=== PATIENT | female | born 1955 | race Caucasian/White ===

== ENCOUNTER 2018-01-06 07:55 | Day surgery (SDC) | payer BC ==
[~2018-01-06 07:55] MED LIST: Lactated Ringers 1,000 ML IV SCH; Sodium Chloride 0.9% 10 ML Syringe FLUSH PRN
[2018-01-06] MEDS ORDERED: fentaNYL 100 MCG/2 ML SDV ONE ×2 (08:54→09:00)
[2018-01-06] MEDS ORDERED: Propofol 200 MG/20 ML SDV ONE ×2 (08:54→09:00)
[2018-01-06] MEDS ORDERED: Midazolam 1 MG/ML 2 ML SDV ONE ×2 (08:54→09:00)
--- NOTE | 2018-01-06 08:54 | PCM.PN ---
- General Info Date of Service: 01/06/18 - Review of Systems Systems Review Comment:: 62-year-old female referred by Fidelia Cardenas for colonoscopy.her last colonoscopy was in 2010. She has recently been experiencing symptoms of diarrhea and right red rectal bleeding. A recent CT scan documented diverticulosis of the colon. The patient's recent history and physical is reviewed and there is no significant recent change in her health status. She is medically stable to proceed today. I have discussed the proposed colonoscopy with the patient. She understands indications and risks and agrees to proceed accepting these risks. - Patient Data Vitals - Most Recent: Last Vital Signs Temp 97 F 01/06/18 08:20 Pulse 84 01/06/18 08:20 Resp 18 01/06/18 08:20 BP 121/56 L 01/06/18 08:20 Pulse Ox 94 L 01/06/18 08:20 Weight - Most Recent: 99.79 kg Med Orders - Current: Current Medications Lactated Ringer's (Ringers, Lactated) 1,000 mls @ 125 mls/hr IV ASDIRECTED VAMIS Last Admin: 01/06/18 08:29 Dose: 125 mls/hr Sodium Chloride (Saline Flush) 10 ml FLUSH ASDIRECTED PRN PRN Reason: Keep Vein Open - Problem List Review Problem List Initiated/Reviewed/Updated: Yes - My Orders Last 24 Hours: My Active Orders 01/06/18 08:00 Blood Glucose Check, Bedside [RC] ONETIME - Assessment Assessment:: Diarrhea Rectal bleeding - Plan Plan:: Colonoscopy
--- NOTE | 2018-01-06 09:45 | PCM.OPNOTE ---
- General Post-Op/Procedure Note Date of Surgery/Procedure: 01/06/18 Operative Procedure(s): Colonoscopy with biopsy Findings: Generalized mild colitis throughout the colon. The mucosa was slightly hyperemic and folds mildly thickened. Patient also had moderate to large sized internal hemorrhoids Pre Op Diagnosis: Rectal bleeding and diarrhea Post-Op Diagnosis: Colitis. Hemorrhoids Anesthesia Technique: MAC Primary Surgeon: Miguel Solomon Pathology: Biopsies of right and left colon Output, Urine Amount: 0 EBL in mLs: 3 Complications: None Condition: Good Free Text/Narrative:: Intake & Output 01/05/18 01/06/18 01/06/18 22:59 06:59 14:59 Intake Total 1000 Balance 1000
--- NOTE | 2018-01-06 15:21 | OR ---
Date of Procedure: 01/06/2018 PREOPERATIVE DIAGNOSES: Diarrhea and rectal bleeding. POSTOPERATIVE DIAGNOSES: Colitis and hemorrhoids. OPERATION PERFORMED: Colonoscopy with biopsy. INDICATIONS FOR SURGERY: This 62-year-old female is referred for colonoscopy because of recent symptoms of diarrhea and bright red rectal bleeding. She comes now for colonoscopy. FINDINGS: The patient has a generalized appearance of mild colitis throughout the colon. This consists of mild hyperemia of the colonic mucosa and slight thickening of the folds. No ulcerations or active bleeding is seen at this time. The patient also has [id number] size internal hemorrhoids. PROCEDURE IN DETAIL: The patient was taken to the operating room. She was given intravenous sedation, and with her in the left lateral decubitus position, digital rectal exam was performed showing no rectal masses. The Olympus colonoscope was inserted into the rectum. Retroflexed examination of the rectal canal was performed. The scope was then carefully advanced under direct visualization through the entire length of the colon until the cecum was reached. Cecal acquisition is confirmed by noting the normal internal cecal anatomy, including the appendiceal orifice and ileocecal valve. The light was also noted to transilluminate the abdominal wall in the right lower quadrant. After examining the cecum, the scope was slowly withdrawn sequentially re- examining the colonic segments. Multiple biopsies are taken randomly throughout the right and left colon as the scope was withdrawn. With no sign of bleeding or any other complication, the scope was removed, and the patient was taken from the operating room in satisfactory condition. ESTIMATED BLOOD LOSS: 3 mL. COMPLICATIONS: None. PROGNOSIS: Good. BETINA Solomon MD /[id number]
== END 2018-01-06 10:59 | disposition home or self-care (01) ==
LOC: LL.SDS 07:55
PROVIDERS: ATTEND Surgery
DX: K52.832 Lymphocytic colitis (principal); K64.8 Other hemorrhoids; K31.89 Other diseases of stomach and duodenum; E11.22 Type 2 diabetes mellitus with diabetic chronic kidney disease; I12.9 Hypertensive chronic kidney disease with stage 1 through stage 4 chronic kidney disease, or unspecified chronic kidney disease; N18.9 Chronic kidney disease, unspecified; E78.5 Hyperlipidemia, unspecified; Z79.899 Other long term (current) drug therapy
CPT/HCPCS: 82962; J2250; J2704; J3010; J7120

== ENCOUNTER 2022-09-27 10:21 | Inpatient (IN) | payer MEDICARE ==
[2022-09-27] MEDS ORDERED: oxyCODONE 5 MG Tab PO ONE (10:53)
[2022-09-27] MEDS: Lactated Ringers 1,000 ML IV SCH ×2 (11:01→20:59)
[2022-09-27 11:31] LABS: ANION GAP 9.3 meq/L (7-15)
[2022-09-27] MEDS: ceFAZolin 2 GM in Premix Bag 1 BAG IV SCH ×3 (12:07→23:44)
[2022-09-27] MEDS ORDERED: Morphine 2 MG/ML SYRINGE IVPUSH ONE (12:29)
[2022-09-27] MEDS: Pregabalin 75 MG Cap PO SCH ×2 (13:03→18:56)
[2022-09-27] MEDS ORDERED: ceFAZolin 2 GM in Premix Bag 1 BAG IV SCH (16:00)
[2022-09-27] MEDS ORDERED: Ondansetron 4 MG/2 ML SDV IVPUSH PRN (17:18)
[2022-09-27] MEDS ORDERED: Polyethylene Glycol 3350 Powder 17 GM Packet PO PRN (17:18)
[2022-09-27] MEDS ORDERED: 50% Dextrose in Water 50 ML Syringe IVPUSH PRN (17:22)
[2022-09-27] MEDS ORDERED: Glucagon,Human Recombinant 1 MG Vial IM PRN (17:22)
[2022-09-27] MEDS: Insulin Lispro 100 Units/ML 3 ML Vial SUBCUT SCH (17:59)
[2022-09-27] MEDS ORDERED: COLESEVELAM 625 MG PO SCH (18:00)
[2022-09-27] MEDS ORDERED: Insulin Lispro 100 Units/ML 3 ML Vial SUBCUT SCH (18:00)
[2022-09-27] MEDS: Furosemide 40 MG Tab PO SCH (18:05)
[2022-09-27] MEDS: Potassium Chloride 10 MEQ Tab.ER PO SCH (18:56)
[2022-09-27] MEDS: Omeprazole 20 MG Cap.CR PO SCH (18:56)
[2022-09-27] MEDS: Magnesium Chloride 64 MG Tab.ER PO SCH (18:56)
[2022-09-27] MEDS: Calcium Carbonate/Vitamin D3 625 MG-125 Unit Tab PO SCH (18:56)
[2022-09-27] MEDS: Losartan 50 MG Tab PO SCH (18:57)
[2022-09-27] MEDS: oxyCODONE 5 MG Tab PO PRN (19:06)
[2022-09-27] MEDS: Acetaminophen 325 MG Tab PO PRN (19:07)
[2022-09-27] MEDS ORDERED: Insulin Glarg,Human.Rec.Analog 100 Unit/ML SUBCUT SCH (20:00)
[2022-09-27] MEDS ORDERED: Simvastatin 20 MG Tab PO SCH (20:00)
[2022-09-27] MEDS: Fenofibrate,Micronized 134 MG Cap PO SCH (20:35)
[2022-09-27] MEDS: Fenofibrate,Micronized 67 MG Cap PO SCH (20:36)
[2022-09-28] MEDS: Acetaminophen 325 MG Tab PO PRN ×3 (05:00→17:27)
[2022-09-28] MEDS: oxyCODONE 5 MG Tab PO PRN ×3 (05:01→21:25)
[2022-09-28] MEDS: Aspirin 81 MG Tab.EC PO SCH (07:49)
[2022-09-28] MEDS: DULoxetine 30 MG Cap PO SCH (07:49)
[2022-09-28] MEDS: Furosemide 40 MG Tab PO SCH ×2 (07:50→17:24)
[2022-09-28] MEDS: Potassium Chloride 10 MEQ Tab.ER PO SCH ×2 (07:50→17:24)
[2022-09-28] MEDS: Multivitamin Tab PO SCH (07:51)
[2022-09-28] MEDS: Omeprazole 20 MG Cap.CR PO SCH ×2 (07:52→17:24)
[2022-09-28] MEDS: Magnesium Chloride 64 MG Tab.ER PO SCH ×2 (07:52→17:23)
[2022-09-28] MEDS: Calcium Carbonate/Vitamin D3 625 MG-125 Unit Tab PO SCH ×2 (07:52→17:23)
[2022-09-28] MEDS: Pregabalin 75 MG Cap PO SCH ×2 (07:52→17:24)
[2022-09-28] MEDS: Sodium Chloride 0.9% 10 ML Syringe FLUSH PRN ×4 (07:54→14:10)
[2022-09-28] MEDS: ceFAZolin 2 GM in Premix Bag 1 BAG IV SCH (07:54)
[2022-09-28 08:03] LABS: ANION GAP 10.3 meq/L (7-15)
[2022-09-28] MEDS: Losartan 50 MG Tab PO SCH (08:13)
[2022-09-28] MEDS: Insulin Lispro 100 Units/ML 3 ML Vial SUBCUT SCH ×3 (08:14→17:36)
[2022-09-28] MEDS: Enoxaparin 30 MG/0.3 ML Syringe SUBCUT SCH (12:00)
[2022-09-28] MEDS: Ferrous Sulfate 325 MG Tab PO SCH (12:01)
[2022-09-28] MEDS ORDERED: Furosemide 20 MG/2 ML VIAL IVPUSH ONE (14:00)
[2022-09-28] MEDS: Losartan 25 MG Tab PO SCH (17:24)
[2022-09-28] MEDS ORDERED: Insulin Glarg,Human.Rec.Analog 100 Unit/ML SUBCUT SCH ×2 (20:00)
[2022-09-28] MEDS: Fenofibrate,Micronized 134 MG Cap PO SCH (21:24)
[2022-09-28] MEDS: Fenofibrate,Micronized 67 MG Cap PO SCH (21:24)
[2022-09-28] MEDS: atorvaSTATin 20 MG Tab PO SCH (21:24)
[2022-09-29] MEDS: Acetaminophen 325 MG Tab PO PRN ×3 (01:04→20:31)
[2022-09-29] MEDS: oxyCODONE 5 MG Tab PO PRN ×2 (07:40→17:32)
[2022-09-29] MEDS: DULoxetine 30 MG Cap PO SCH (07:41)
[2022-09-29] MEDS: Aspirin 81 MG Tab.EC PO SCH (07:42)
[2022-09-29] MEDS: Pregabalin 75 MG Cap PO SCH ×2 (07:42→17:24)
[2022-09-29] MEDS: Omeprazole 20 MG Cap.CR PO SCH ×2 (07:42→17:24)
[2022-09-29] MEDS: Magnesium Chloride 64 MG Tab.ER PO SCH ×2 (07:42→17:25)
[2022-09-29] MEDS: Potassium Chloride 10 MEQ Tab.ER PO SCH ×2 (07:42→17:24)
[2022-09-29] MEDS: Multivitamin Tab PO SCH (07:42)
[2022-09-29] MEDS: Insulin Lispro 100 Units/ML 3 ML Vial SUBCUT SCH ×3 (07:43→17:22)
[2022-09-29] MEDS: Calcium Carbonate/Vitamin D3 625 MG-125 Unit Tab PO SCH ×2 (07:43→17:25)
[2022-09-29] MEDS: Furosemide 40 MG Tab PO SCH ×2 (07:43→17:24)
[2022-09-29] MEDS: Enoxaparin 30 MG/0.3 ML Syringe SUBCUT SCH (07:43)
[2022-09-29 08:28] LABS: ANION GAP 10.7 meq/L (7-15)
[2022-09-29] MEDS ORDERED: Sodium Chloride 0.9% 1,000 ML IV ONE ×2 (10:46→10:56)
[2022-09-29] MEDS: Sodium Chloride 0.9% 10 ML Syringe FLUSH PRN ×2 (10:51→12:36)
[2022-09-29] MEDS ORDERED: Iopamidol 612 MG/ML 100 ML Bottle IVPUSH ONE (11:30)
[2022-09-29] MEDS: Ferrous Sulfate 325 MG Tab PO SCH (12:36)
[2022-09-29 15:43] LABS: ANION GAP 10.3 meq/L (7-15)
[2022-09-29] MEDS: Losartan 25 MG Tab PO SCH (17:25)
[2022-09-29] MEDS ORDERED: Morphine 2 MG/ML SYRINGE IVPUSH ONE (17:58)
[2022-09-29] MEDS ORDERED: Ondansetron 4 MG/2 ML SDV IVPUSH ONE (17:59)
[2022-09-29] MEDS ORDERED: Insulin Glarg,Human.Rec.Analog 100 Unit/ML SUBCUT SCH (20:00)
[2022-09-29] MEDS: Fenofibrate,Micronized 67 MG Cap PO SCH (20:28)
[2022-09-29] MEDS: Fenofibrate,Micronized 134 MG Cap PO SCH (20:28)
[2022-09-29] MEDS: atorvaSTATin 20 MG Tab PO SCH (20:29)
[2022-09-30] MEDS: oxyCODONE 5 MG Tab PO PRN ×3 (01:36→19:11)
[2022-09-30] MEDS: Acetaminophen 325 MG Tab PO PRN ×2 (08:04→23:53)
[2022-09-30] MEDS: Insulin Lispro 100 Units/ML 3 ML Vial SUBCUT SCH ×3 (08:04→17:28)
[2022-09-30] MEDS: Aspirin 81 MG Tab.EC PO SCH (08:05)
[2022-09-30] MEDS: DULoxetine 30 MG Cap PO SCH (08:05)
[2022-09-30] MEDS: Omeprazole 20 MG Cap.CR PO SCH ×2 (08:05→17:30)
[2022-09-30] MEDS: Magnesium Chloride 64 MG Tab.ER PO SCH ×2 (08:05→17:29)
[2022-09-30] MEDS: Calcium Carbonate/Vitamin D3 625 MG-125 Unit Tab PO SCH ×2 (08:05→17:29)
[2022-09-30] MEDS: Pregabalin 75 MG Cap PO SCH ×2 (08:06→17:29)
[2022-09-30] MEDS: Potassium Chloride 10 MEQ Tab.ER PO SCH ×2 (08:06→17:29)
[2022-09-30] MEDS: Multivitamin Tab PO SCH (08:06)
[2022-09-30 08:23] LABS: ANION GAP 7.9 meq/L (7-15)
[2022-09-30] MEDS: Furosemide 40 MG/4 ML VIAL IVPUSH SCH (09:49)
[2022-09-30] MEDS: Enoxaparin 30 MG/0.3 ML Syringe SUBCUT SCH (09:49)
[2022-09-30] MEDS ORDERED: Orphenadrine 100 MG Tab.ER PO ONE (11:34)
[2022-09-30] MEDS: Ferrous Sulfate 325 MG Tab PO SCH (11:41)
[2022-09-30] MEDS ORDERED: Lactated Ringers 1,000 ML IV SCH (20:00)
[2022-09-30] MEDS: Fenofibrate,Micronized 67 MG Cap PO SCH (20:03)
[2022-09-30] MEDS: atorvaSTATin 20 MG Tab PO SCH (20:03)
[2022-09-30] MEDS: Fenofibrate,Micronized 134 MG Cap PO SCH (20:03)
[2022-10-01] MEDS: oxyCODONE 5 MG Tab PO PRN (04:48)
[2022-10-01] MEDS: Acetaminophen 325 MG Tab PO PRN (05:06)
[2022-10-01] MEDS: Furosemide 40 MG/4 ML VIAL IVPUSH SCH (08:40)
[2022-10-01] MEDS: Enoxaparin 30 MG/0.3 ML Syringe SUBCUT SCH (08:41)
[2022-10-01] MEDS: Calcium Carbonate/Vitamin D3 625 MG-125 Unit Tab PO SCH (08:41)
[2022-10-01] MEDS: Omeprazole 20 MG Cap.CR PO SCH (08:41)
[2022-10-01] MEDS: Potassium Chloride 10 MEQ Tab.ER PO SCH (08:41)
[2022-10-01] MEDS: DULoxetine 30 MG Cap PO SCH (08:41)
[2022-10-01] MEDS: Pregabalin 75 MG Cap PO SCH (08:41)
[2022-10-01] MEDS: Magnesium Chloride 64 MG Tab.ER PO SCH (08:41)
[2022-10-01] MEDS: Aspirin 81 MG Tab.EC PO SCH (08:41)
[2022-10-01] MEDS: Multivitamin Tab PO SCH (08:41)
[2022-10-01] MEDS: Insulin Lispro 100 Units/ML 3 ML Vial SUBCUT SCH ×2 (08:47→12:46)
[2022-10-01] MEDS: Sodium Chloride 0.9% 10 ML Syringe FLUSH PRN ×2 (08:50→11:18)
[2022-10-01 11:39] LABS: ANION GAP 6.8 meq/L (7-15)
[2022-10-01] MEDS ORDERED: Sodium Chloride 0.9% 1,000 ML IV SCH (11:45)
[2022-10-01] MEDS ORDERED: Orphenadrine 100 MG Tab.ER PO SCH (12:30)
[2022-10-01] MEDS: Ferrous Sulfate 325 MG Tab PO SCH (12:46)
[2022-10-01] MEDS ORDERED: cefTRIAXone 2 GM in Sodium Chloride 0.9% 100 ML IV SCH (14:00)
[2022-10-02] MEDS ORDERED: Potassium Chloride 10 MEQ Tab.ER PO SCH (12:00)
== END 2022-10-01 15:43 | DRG 872 ==
LOC: LL.ED 10:21 → LL.MS 13:56
PROVIDERS: ADMIT Hospitalist; ATTEND Emergency Medicine
DX: A41.89 Other specified sepsis (principal); L03.115 Cellulitis of right lower limb; N17.9 Acute kidney failure, unspecified; E11.621 Type 2 diabetes mellitus with foot ulcer; I10 Essential (primary) hypertension; L97.512 Non-pressure chronic ulcer of other part of right foot with fat layer exposed; E78.00 Pure hypercholesterolemia, unspecified; Z79.4 Long term (current) use of insulin; Z79.899 Other long term (current) drug therapy; L03.031 Cellulitis of right toe; E11.9 Type 2 diabetes mellitus without complications; I50.9 Heart failure, unspecified
CPT/HCPCS: 36415; 51701; 51702; 51798; 71275; 72141; 72146; 73221-LT; 73660-T6; 74177; 80048; 80053; 80202; 81003; 82947; 83605; 83735; 83880; 84484; 85025; 85027; 85379; 86140; 87040; 87070; 87186; 87205; 93005; 93970; 96361; 96365; 96375; 99204; 99285-25; A9270-GY; J0690; J1650; J1815-GY; J1940; J2270; J2405; J3370; J3490; J7030; J7050; J7120; Q9967